=== PATIENT | female | born 1945 | race Caucasian/White ===

== ENCOUNTER → 2020-01-27 13:14 | Outpatient (BNVA) | payer MEDICARE, OTHER, SELFPAY | PROVIDERS: Family Provider Family Medicine; PCP Family Medicine; Visit Provider Internal Medicine | DX: M35.3 Polymyalgia rheumatica (principal); Z79.899 Other long term (current) drug therapy; Z79.52 Long term (current) use of systemic steroids; Z11.1 Encounter for screening for respiratory tuberculosis; Z11.59 Encounter for screening for other viral diseases | CPT/HCPCS: 36415; 80053; 81003; 82550; 82784; 83516; 84443; 85025; 85651; 86140; 86431; 86480; 86704; 86803; 87340; 99204 ==

== ENCOUNTER → 2020-02-10 13:17 | Outpatient (BNVA) | payer MEDICARE, OTHER, SELFPAY | PROVIDERS: Family Provider Family Medicine; PCP Family Medicine; Visit Provider Internal Medicine | DX: M35.3 Polymyalgia rheumatica (principal); M25.50 Pain in unspecified joint; R53.1 Weakness; R70.0 Elevated erythrocyte sedimentation rate; Z79.52 Long term (current) use of systemic steroids | CPT/HCPCS: 99214 ==

== ENCOUNTER 2020-03-09 13:04 | Outpatient (CLI) | payer MEDICARE, OTHER, SELFPAY ==
--- NOTE | 2020-03-09 13:00 | XR_ITS ---
WS: [id number] Exam: XR hand LT 2V [id number] Date/Time of Exam: 03/09/2020 1:00 PM Reason For Exam: M35.3 - Polymyalgia rheumatica No fracture or dislocation. 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 Normal soft tiss ues. XR/XR hand LT 2V 96347 IMPRESSION: 1. 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 2. No fracture or other significant finding.
--- NOTE | 2020-03-09 13:30 | XR_ITS ---
WS: [id number] Exam: XR hand RT 2V [id number] Date/Time of Exam: 03/09/2020 1:30 PM Reason For Exam: M35.3 - Polymyalgia rheumatica No fracture or dislocation. Severe degenerative change at the DIP joint of the fifth finger. There is also moderate degenerative narrowing of the remaining IP joints and MP joints. Soft tissues are unre markable. XR/XR hand RT 2V 60790 IMPRESSION: 1. Degenerative changes of the IP and MP joints. 2. No fracture or dislocation.
--- NOTE | 2020-03-09 14:00 | XR_ITS ---
WS: [id number] Exam: XR shoulder RT min 2V* [id number] Date/Time of Exam: 03/09/2020 2:00 PM Reason For Exam: M35.3 - Polymyalgia rheumatica No fracture or dislocation noted. Moderate degenerative changes of the glenohumeral joint and the AC joint. There is hypertrophic spurring along the superior margin of the AC joint. Normal soft tissues. XR/XR shoulder RT min 2V* [id number] IMPRESSION: 1. Degenerative changes of the AC joint and glenohumeral joint. 2. No fracture or dislocation.
--- NOTE | 2020-03-09 14:06 | XR_ITS ---
WS: [id number] Exam: XR hip RT 2-3V wo/w pel* [id number] Date/Time of Exam: 03/09/2020 2:07 PM Reason For Exam: M35.3 - Polymyalgia rheumatica No fracture or dislocation. Mild degenerative narrowing of the joint compartment. Normal soft tissues . XR/XR hip RT 2-3V wo/w pel* [id number] IMPRESSION: 1. Mild DJD. No fracture noted.
--- NOTE | 2020-03-09 14:30 | XR_ITS ---
WS: [id number] Exam: XR foot LT 2V 12614 Date/Time of Exam: 03/09/2020 2:30 PM Reason For Exam: M25.50 - Pain in unspecified joint No fracture or dislocation. Degenerative changes in the IP joints and first MP joint. Very small plan rotary drier feeder spur. Normal soft tissues. XR/XR foot LT 2V 55510 IMPRESSION: 1. No fracture or dislocation. 2. Degenerative changes and small heel spur.
--- NOTE | 2020-03-09 14:45 | XR_ITS ---
WS: [id number] Exam: XR foot RT 2V 10620 Date/Time of Exam: 03/09/2020 2:45 PM Reason For Exam: M25.50 - Pain in unspecified joint No fracture or dislocation. There is varus deviation of the third and fourth toes. Degenerative carrion es in the IP joints. Moderate DJD at the first MP joint. Osteopenia. A single orthopedic screw is not ed in the region of the medial malleolus. Soft tissues are unremarkable. XR/XR foot RT 2V 46514 IMPRESSION: 1. Degenerative changes and osteopenia. No acute fracture. 2. Additional findings as above.
== END 2020-03-09 13:05 | disposition home or self-care (01) ==
PROVIDERS: PCP Family Medicine; Visit Provider Internal Medicine
DX: M25.50 Pain in unspecified joint (principal); M35.3 Polymyalgia rheumatica; M85.88 Other specified disorders of bone density and structure, other site; M16.11 Unilateral primary osteoarthritis, right hip
CPT/HCPCS: 73030; 73120; 73502; 73620

== ENCOUNTER → 2020-03-15 13:52 | Outpatient (BNVA) | payer MEDICARE, OTHER, SELFPAY | PROVIDERS: PCP Family Medicine; Visit Provider Internal Medicine | DX: M35.3 Polymyalgia rheumatica (principal); R53.1 Weakness; R70.0 Elevated erythrocyte sedimentation rate; Z79.899 Other long term (current) drug therapy; Z79.52 Long term (current) use of systemic steroids | CPT/HCPCS: 36415; 80053; 85025; 85651; 86140; 99214 ==

== ENCOUNTER → 2020-05-12 12:47 | Outpatient (BNVA) | payer MEDICARE, OTHER, SELFPAY | PROVIDERS: PCP Family Medicine; Visit Provider Internal Medicine | DX: M35.3 Polymyalgia rheumatica (principal); R70.0 Elevated erythrocyte sedimentation rate; M17.10 Unilateral primary osteoarthritis, unspecified knee; Z79.899 Other long term (current) drug therapy | CPT/HCPCS: 36415; 80053; 85025; 85651; 86140; 99214 ==

== ENCOUNTER → 2020-09-20 11:42 | Outpatient (BNVA) | payer MEDICARE, OTHER, SELFPAY | PROVIDERS: PCP Family Medicine; Visit Provider Internal Medicine | DX: R70.0 Elevated erythrocyte sedimentation rate (principal); M35.3 Polymyalgia rheumatica; M17.10 Unilateral primary osteoarthritis, unspecified knee; Z79.899 Other long term (current) drug therapy | CPT/HCPCS: 36415; 80053; 85025; 85651; 86140 ==

== ENCOUNTER → 2020-09-26 10:24 | Outpatient (BNVA) | payer MEDICARE, OTHER, SELFPAY | PROVIDERS: PCP Family Medicine; Visit Provider Internal Medicine | DX: M35.3 Polymyalgia rheumatica (principal); R70.0 Elevated erythrocyte sedimentation rate | CPT/HCPCS: 99214 ==

== ENCOUNTER 2021-07-03 13:30 | Outpatient (CLI) | payer MEDICARE, OTHER, SELFPAY ==
[2021-07-03 15:09] LABS: Basophils # 0.1 10^3/uL (0.0-0.1); Basophils % 0.8 %; Eosinophils # 0.7 10^3/uL (0.0-0.8); Eosinophils % 9.6 %; Hemoglobin 11.8 g/dL (11.5-15.3); Lymphocytes # 1.8 10^3/uL (0.8-4.8); Lymphocytes % 23.6 %; Mean Corpuscular HGB Conc 30.3 g/dL (30.0-36.0); Mean Corpuscular Hemoglobin 28.6 pg (28.0-34.0); Mean Corpuscular Volume 94.7 fl (81-99); Mean Platelet Volume 10.8 fL (7.4-10.4); Monocytes # 0.9 10^3/uL (0.2-0.9); Monocytes % 11.8 %; Neutrophils # 4.11 10^3/uL (1.8-7.7); Neutrophils % 53.9 %; Nucleated Red Blood Cells % 0 %; Platelet Count 300 10^3/cmm (130-400); Red Blood Count 4.12 10^6/uL (4.1-5.3); Red Cell Distribution Width 14.5 % (12.1-15.1); White Blood Count 7.6 10^3/uL (4.0-10.0)
[2021-07-03 15:27] LABS: Erythrocyte Sedimentation Rate 44 mm/hr (0-15)
[2021-07-03 15:28] LABS: Alanine Aminotransferase 20 U/L (0-33); Albumin Level 3.8 g/dL (3.5-5.2); Alkaline Phosphatase 92 IU/L (35-105); Anion Gap 13.1 (5-19); Aspartate Amino Transferase 17 U/L (0-32); Blood Urea Nitrogen 12 mg/dL (8-23); C Reactive Protein 10.1 mg/L (0.0-4.9); Calcium 8.6 mg/dL (8.5-10.5); Carbon Dioxide 29 mmol/L (22-29); Chloride 101 mmol/L (98-107); Globulin 3.4 g/dL (1.3-4.6); Glucose 113 mg/dL (65-115); Osmolality Calculated 289 mOsm/kg (285-295); Potassium 4.1 mmol/L (3.5-5.1); Sodium 139 mmol/L (136-145); Total Bilirubin 0.2 mg/dL (0.15-1.2); Total Protein 7.2 g/dL (6.6-8.7)
== END 2021-07-03 13:31 | disposition home or self-care (01) ==
LOC: LAB 13:37
PROVIDERS: PCP Family Medicine; Visit Provider Internal Medicine
DX: R70.0 Elevated erythrocyte sedimentation rate (principal); M17.10 Unilateral primary osteoarthritis, unspecified knee; M35.3 Polymyalgia rheumatica; Z79.899 Other long term (current) drug therapy
CPT/HCPCS: 36415; 80053; 85025; 85651; 86140; 99214

== ENCOUNTER → 2021-11-27 15:44 | Outpatient (BNVA) | payer MEDICARE, OTHER, SELFPAY | PROVIDERS: PCP Family Medicine; Visit Provider Internal Medicine | DX: M35.3 Polymyalgia rheumatica (principal); R70.0 Elevated erythrocyte sedimentation rate | CPT/HCPCS: 99214 ==